=== PATIENT | female | born 1980 | race Caucasian/White ===

== ENCOUNTER 2019-07-31 06:19 | Day surgery (SDC) | payer BC ==
[~2019-07-31] VITALS: Ht 157.5 cm; Wt 66.7 kg
[2019-07-31 07:08] VITALS: BP 116/80; PULSE 86; TEMP 98.1
[2019-07-31] MEDS ORDERED: ADVIL200 MG PO (07:15)
--- NOTE | 2019-07-31 07:16 | NUR ---
TO RM 1 AT 0630 CALL LIGHT IN REACH BOYFRIEND GINA AT BEDSIDE.
[2019-07-31 09:05] VITALS: BP 109/68; PULSE 69; TEMP 98.2
--- NOTE | 2019-07-31 09:05 | NUR ---
TO RM 1 PER CART FROM PACU. ALERT ORIENTED X3, TALKING TO STAFF AND BOYFRIEND. DENIES PAIN OR DISCOMFORT. DENIES NAUSEA OR VOMITING. RECEIVED WATER
[2019-07-31 09:20] VITALS: BP 104/77; PULSE 74
--- NOTE | 2019-07-31 09:20 | NUR ---
RECEIVED 2ND GLASS OF WATER AND DELLA CRACKERS.
[2019-07-31 09:35] VITALS: BP 103/69; PULSE 77
--- NOTE | 2019-07-31 09:35 | NUR ---
ATE 100% AND TOLERATED WELL.
[2019-07-31 09:50] VITALS: BP 100/59; PULSE 71
--- NOTE | 2019-07-31 09:50 | NUR ---
AMBULATED TO BATHROOM AND VOIDED PINK URINE.
--- NOTE | 2019-07-31 10:05 | NUR ---
RECEIVED DISCHARGE INSTRUCTIONS AND VERBALIZED UNDERSTANDING. DISCONTINUED IV AND INT- CATHETER INTACT
--- NOTE | 2019-07-31 10:20 | NUR ---
DISCHARGED PER WC BY NURSING STAFF TO PRIVATE CAR IN CARE OF BOYFRIEND -GINA
== END 2019-07-31 10:47 | disposition home or self-care (01) ==
LOC: SDCO 06:19
DX: N20.0 Calculus of kidney (principal); F17.210 Nicotine dependence, cigarettes, uncomplicated; Z83.3 Family history of diabetes mellitus
CPT/HCPCS: C1769; C2617; J0690; J1100; J2250; J2405; J2704; J3010; J7120

== ENCOUNTER 2019-08-11 07:16 | Day surgery (SDC) | payer BC ==
[~2019-08-11] VITALS: Ht 157.5 cm; Wt 66.4 kg
[2019-08-11] VITALS (7 sets, daily range): BP systolic 105–120; BP diastolic 63–79; PULSE 71–90; TEMP 98–98.4
[~2019-08-11 07:16] MED LIST: ADVIL200 MG PO
[2019-08-11] MEDS ORDERED: IBU800 M1 PO (07:41)
[2019-08-11] MEDS ORDERED: NORCO 325 MG-7.1 TAB PO (07:42)
--- NOTE | 2019-08-11 11:50 | NUR ---
The patient arrived back to [facility] from the recovery room at this time. The patient appears drowsy but arouses to her name. The patient's post operative vital signs were started at this time. The patient's call light is within reach. The patient's friend was attempted to be reached in the waiting but was unavailable at this time. Will continue to monitor the patient.
--- NOTE | 2019-08-11 12:05 | NUR ---
The patient appears to be resting quietly on the cart at this time. Respirations even and unlabored. Will continue to monitor the patient.
--- NOTE | 2019-08-11 12:20 | NUR ---
The patient's call light remains within reach. Vital signs stable. Will continue to monitor the patient.
--- NOTE | 2019-08-11 12:35 | NUR ---
The patient appears to be resting comfortably on the cart at this time. Vital signs appear stable. Call light is within reach. Will continue to monitor the patient.
--- NOTE | 2019-08-11 13:05 | NUR ---
The patient appears more alert and requests to try some judy crackers and ice water at this time. The patient reports increased pain in her left flank at this time. The nurse instructed the patient to eat and drink and the nurse will bring in a pain pill with the next vital sign check.
--- NOTE | 2019-08-11 13:35 | NUR ---
The patient has finished the crackers and water and apperaed to tolerate both well. The patient was given a PRN dose of Colo one tab at this time. Will continue to monitor the patient.
--- NOTE | 2019-08-11 14:20 | NUR ---
Discharge instructions were reviewed with the patient by CALOS Esparza. The patient verbalized understanding and questions were answered at this time. The patient's IV to her left hand was removed and a pressure dressing was applied to the site. The nurse instructed the patient to get dressed and notify the staff when she is ready to be escorted out.
--- NOTE | 2019-08-11 14:37 | NUR ---
Dr. Abreu was called to confirm when the patient is supposed to pull her ureteral stent at home. He stated that the patient should pull the stent Saturday morning. He instructed to have the patient to "drink a lot of coffee or water" to get a full bladder then go into the shower and while she is peeing pull on the stent strings. The stent should come out with her urine flow but it she has difficulty the patient is to call the office Saturday morning.
--- NOTE | 2019-08-11 14:41 | NUR ---
The patient was escorted out via wheelchair to a private vehicle by CALOS Esparza. The patient's belongings and discharge paperwork were sent with her. The patient's significant other is present to drive her home.
== END 2019-08-11 14:41 | disposition home or self-care (01) ==
LOC: SDCO 07:16
DX: N20.0 Calculus of kidney (principal); F17.210 Nicotine dependence, cigarettes, uncomplicated; F41.9 Anxiety disorder, unspecified; Z83.3 Family history of diabetes mellitus
CPT/HCPCS: C1769; C2617; J0690; J1100; J2405; J2550; J2704; J3010; J7120